=== PATIENT | female | born 1955 | race Caucasian/White ===

== ENCOUNTER 2020-04-15 10:22 | Outpatient (REF) | payer MEDICARE, MEDICAID, SELFPAY ==
--- NOTE | 2020-04-15 11:50 | MHC.AU.P13 ---
Adult Audiological Evaluation Date of Visit: 04/15/20 Reason for Appointment: Long-standing history of fluctuating mixed hearing loss and middle ear dysfunction. Patient feels there has been a change in hearing. Previous Hearing Test Results: On 02/19/2018 at [facility]. Revealed Moderate rising to mild mixed hearing loss in the right ear and moderate rising to mild and sloping to moderate mixed hearing loss in the left ear. 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: [employer] B50-312 Serial Number: [id number] Battery Size: 312 Warranty: 05/28/2021 Dispensed By: [facility] Date of Fittin05/13/2018 Hearing Instrument History- Left Ear: Earth Science Teacher: [employer] Model: Virto B50-312 Serial Number: [id number] Battery Size: 312 Warranty: 05/28/2021 Dispensed By: [facility] Date of Fittin05/13/2018 Otoscopy: Right Ear: Dull tympanic membrane Left Ear: PE tube visualized and appears to be in-tact Tympanometry: Right Ear: Normal Middle Ear System (Type A) Left Ear: Patent PE Tube Hearing Evaluation: Transducer(s) Used: Insert Earphones, Bone Conduction Method: Conventional Audiometry Stimuli Used: Pure Tones Right Ear: Description of Hearing: Moderately-severe rising to mild and sloping to moderately-severe mixed hearing loss Left Ear: Description of Hearing: Mild to profound mixed hearing loss Speech Recognition Threshold (SRT): Method Used: Monitored Live Voice Stimuli Used: Spondee Words Right Ear: 45 dBHL Left Ear: 40 dBHL Word Discrimination: Not performed, as [place] is the patient's primary language Comparison: Compared to most recent evaluation: In the right ear, 2000 Hz and 8000 Hz have slightly decreased. In the left ear, 2781-9335 Hz have significantly decreased. Recommendations: Today's results will be sent to ENT. A follow-up with ENT may be warranted to address changes in hearing in the left ear. Hearing aids were reprogrammed with today's results. Patient was pleased with the adjustment. A piece of shell broke off the vent hole on the right hearing aid. It was sent to [employer] for repair. Patient will be contacted when it has returned. Audiological re-evaluation in one year, or sooner at ENT's discretion. Diagnosis: Primary Diagnosis: H90.6 Mixed Hearing Loss, Bilateral Services Performed: Services Performed: Pure Tone- Air & Bone (CPT 95413) Speech Audiometry Threshold (SRT/SAT) (CPT 11527) Tympanometry (CPT 61298) Signature: Provider: Charla Plata, CCC-A
--- NOTE | 2020-04-15 11:52 | MHC.AU.P13 ---
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 Patient was pleased with the changes. A piece of the vent hole broke off the the right hearing aid. It was sent to [place] for repair. Dispensed batteries. Recommendations: Patient will be contacted when the instrument has returned from repair. Diagnosis Code(s): Primary Diagnosis: H90.6 Mixed Hearing Loss, Bilateral Services Performed: Number of Individual Battery Cells: 42 Signature: Provider: Charla Plata, [facility]
== END 2020-04-15 10:23 | disposition home or self-care (01) ==
LOC: HO.SH 10:22
PROVIDERS: PCP Internal Medicine; Referring Provider Internal Medicine; Visit Provider Internal Medicine
DX: H90.6 Mixed conductive and sensorineural hearing loss, bilateral (principal)
CPT/HCPCS: 92553; 92555; 92567

== ENCOUNTER 2020-05-03 13:16 | Outpatient (REF) | payer MEDICARE, MEDICAID, SELFPAY | END 2020-05-03 13:17 | disposition home or self-care (01) | LOC: HO.HAP 13:16 | PROVIDERS: PCP Internal Medicine; Referring Provider Internal Medicine; Visit Provider Internal Medicine | DX: Z13.89 Encounter for screening for other disorder (principal) | CPT/HCPCS: 92700 ==

== ENCOUNTER 2020-11-14 13:38 | Outpatient (REF) | payer MEDICARE, MEDICAID, SELFPAY | END 2020-11-14 13:39 | disposition home or self-care (01) | LOC: HO.HAP 13:38 | PROVIDERS: Visit Provider Internal Medicine | DX: Z46.1 Encounter for fitting and adjustment of hearing aid (principal) | CPT/HCPCS: V5266 ==